=== PATIENT | female | born 1980 | race African-American/Black ===

== ENCOUNTER 2022-06-17 20:33 | Emergency (ER) | payer MEDICAID ==
[~2022-06-17] VITALS: Ht 165.1 cm; Wt 85.0 kg
[2022-06-17] MEDS ORDERED: LABETALOL HCL VIAL 20 MG/4 ML VIAL IV ONE (21:00)
[2022-06-17] MEDS ORDERED: LABETALOL 5MG/ML SYR 20 MG/4 ML SYRINGE IV NR (21:00)
[2022-06-17 21:34] LABS: BASOPHILS % 0.7 % (0.0-2.0); EOSINOPHILS % 5.3 % (0.0-5.0); HEMATOCRIT. 35.4 % (36.0-48.0); HEMOGLOBIN. 11.6 g/dL (12.0-16.0); LYMPHOCYTES % 35.5 % (20.0-50.0); MEAN CORPUSCULAR VOLUME 82.2 fL (81.0-99.0); MEAN PLATELET VOLUME 7.7 fl (7.4-10.4); MONOCYTES % 5.6 % (2.0-8.0); NEUTROPHILS % 52.9 % (40.0-76.0); PLATELET 344 x1000/uL (130-400); RED BLOOD CELL COUNT 4.31 mill/uL (4.2-5.4); RED CELL DISTRIBUTION WIDTH 14.7 % (11.6-14.6)
[2022-06-17 21:37] LABS: CLARITY URINE CLEAR (CLEAR); COLOR URINE YELLOW (YELLOW); KETONES URINE NEGATIVE (NEGATIVE); LEUKOCYTE ESTERASE URINE NEGATIVE (NEGATIVE); NITRITE URINE NEGATIVE (NEGATIVE); OCCULT BLOOD URINE NEGATIVE (NEGATIVE); PH URINE 6.5 (4.5-8.0); PROTEIN URINE NEGATIVE (NEGATIVE); SPECIFIC GRAVITY URINE 1.005 (1.005-1.030); UROBILINOGEN URINE 0.2 E.U./dL (0.2-1.0)
[2022-06-17 21:41] LABS: CHLORIDE 105 mEq/L (98-107)
[2022-06-17 21:43] LABS: HCG SCREEN NEGATIVE
[2022-06-17 21:45] LABS: INR 0.9; PROTHROMBIN TIME 10.1 sec (9.6-11.0)
[2022-06-17 21:46] LABS: *AMPHETAMINES SCREEN URINE NEGATIVE (NEGATIVE); *BARBITURATES SCREEN URINE NEGATIVE (NEGATIVE); *BENZODIAZEPINES SCREEN URINE NEGATIVE (NEGATIVE); *COCAINE SCREEN URINE NEGATIVE (NEGATIVE); CANNABINOID URINE SCREEN NEGATIVE (NEGATIVE); METHADONE URINE SCREEN NEGATIVE (NEGATIVE); OPIATES URINE SCREEN NEGATIVE (NEGATIVE); PHENCYCLIDINE URINE SCREEN NEGATIVE (NEGATIVE)
[2022-06-17 21:54] LABS: ETHANOL BLOOD < 10 mg/dL
[2022-06-18] MEDS ORDERED: ACETAMINOPHEN 325MG TABLET PO ONE (00:30)
[2022-06-18] MEDS ORDERED: KETOROLAC 30MG/ML VIAL IV ONE (00:30)
[2022-06-18 01:00] VITALS: BP 154/74
== END 2022-06-18 01:26 | disposition home or self-care (01) ==
LOC: ER 20:33
DX: I10 Essential (primary) hypertension (principal); R51.9 Headache, unspecified; R53.1 Weakness; R06.02 Shortness of breath
CPT/HCPCS: 36415; 70450; 71045; 80053; 80305; 80320; 81003; 81025; 83690; 83880; 84484; 84703; 85025; 85610; 93005; 96374; 96375; 99285; J1885; J3490; G0480